=== PATIENT | female | born 1955 | race Caucasian/White ===

== ENCOUNTER → 2016-10-16 | Outpatient (CLI) | payer BC ==
[~2016-10-16] MED LIST: ALBUTEROL0.09 MG/A2 INH; COUGH PO; LEVOFLOXACIN500 MG PO; LEVOTHYROXINE0.05 MG PO; LISINOPRIL/HCTZ1 TA3 PO; PREDNICOT10 MG PO; ZITHROMAX Z PA250 MG PO; ZYRTEC-D 5 MG-11 TE1 PO
== END | disposition home or self-care (01) ==
LOC: RAD 12:04
DX: M47.897 Other spondylosis, lumbosacral region (principal); M47.896 Other spondylosis, lumbar region; M25.78 Osteophyte, vertebrae

== ENCOUNTER → 2016-11-25 | Outpatient (CLI) | payer BC ==
[2016-11-25 10:50] LABS: BASO # 0.1 10*3/uL (0.0-0.1); EOS # 0.2 10*3/uL (0.0-0.4); EOS % 2.2 % (1.0-4.0); HEMATOCRIT 37.6 % (37.0-47.0); HEMOGLOBIN 12.4 g/dl (12.0-16.0); LYMPH # 3.2 10*3/uL (1.3-4.4); LYMPH % 33.7 % (27.0-41.0); MEAN PLATELET VOLUME 12.6 fl (9.6-12.3); MONO # 0.7 10*3/uL (0.1-1.0); MONO % 7.1 % (3.0-9.0); NEUT # 5.2 10*3/uL (2.3-7.9); NEUT % 55.5 % (47.0-73.0); PLATELET COUNT AUTOMATED 227 10*3/uL (130-400); RED CELL DISTRI WIDTH 13.7 % (0-14.5); WHITE BLOOD COUNT 9.4 10*3/uL (4.8-10.8)
[2016-11-25 11:11] LABS: ALBUMIN 3.5 gm/dl (3.1-4.5); ALKALINE PHOSPHATASE 55 U/L (45-117); BUN 16 mg/dl (7-24); CHLORIDE 97 mmol/L (98-107); CHOLESTEROL 222 mg/dL (<200); CREATININE 0.82 mg/dL (0.55-1.02); HDL CHOLESTEROL 60 mg/dl (40-60); LDL CHOLESTEROL 130 mg/dL (9-159); POTASSIUM 3.4 mmol/L (3.5-5.1); SGOT/AST 18 IU/L (3-35); SGPT/ALT 32 U/L (12-78); SODIUM 138 mmol/L (136-145); TOTAL PROTEIN 7.1 gm/dL (6.4-8.2); TRIGLYCERIDES 160 mg/dl (<150); VLDL CHOLESTEROL 32 mg/dL (6-40)
== END | disposition home or self-care (01) ==
LOC: LAB 10:05
PROVIDERS: Internal Medicine
DX: I10 Essential (primary) hypertension (principal); E03.9 Hypothyroidism, unspecified; E78.2 Mixed hyperlipidemia; E55.9 Vitamin D deficiency, unspecified

== ENCOUNTER → 2017-04-23 | Outpatient (CLI) | payer BC ==
[2017-04-23 09:47] LABS: BASO # 0.1 10*3/uL (0.0-0.1); BASO % 0.8 % (0.0-1.0); EOS # 0.3 10*3/uL (0.0-0.4); EOS % 4.1 % (1.0-4.0); HEMATOCRIT 36.8 % (37.0-47.0); HEMOGLOBIN 12.3 g/dl (12.0-16.0); LYMPH # 1.4 10*3/uL (1.3-4.4); LYMPH % 19.6 % (27.0-41.0); MEAN CELL VOLUME 92.2 fl (81.0-99.0); MEAN CORPUSCULAR HGB 30.8 pg (27.0-31.0); MEAN CORPUSCULAR HGB CONC 33.4 g/dl (33.0-37.0); MEAN PLATELET VOLUME 12.9 fl (9.6-12.3); MONO # 0.4 10*3/uL (0.1-1.0); MONO % 5.6 % (3.0-9.0); NEUT # 5.1 10*3/uL (2.3-7.9); NEUT % 69.6 % (47.0-73.0); PLATELET COUNT AUTOMATED 228 10*3/uL (130-400); RED BLOOD COUNT 3.99 10*6/uL (4.10-5.10); WHITE BLOOD COUNT 7.3 10*3/uL (4.8-10.8)
[2017-04-23 10:08] LABS: ALBUMIN 3.4 gm/dl (3.1-4.5); ALKALINE PHOSPHATASE 65 U/L (45-117); BUN 12 mg/dl (7-24); CHLORIDE 101 mmol/L (98-107); CREATININE 0.74 mg/dL (0.55-1.02); POTASSIUM 3.5 mmol/L (3.5-5.1); SGOT/AST 16 IU/L (3-35); SGPT/ALT 21 U/L (12-78); SODIUM 139 mmol/L (136-145)
== END ==
LOC: LAB 09:07
PROVIDERS: Internal Medicine
DX: R73.09 Other abnormal glucose (principal); M35.3 Polymyalgia rheumatica; E03.9 Hypothyroidism, unspecified; E55.9 Vitamin D deficiency, unspecified; I10 Essential (primary) hypertension

== ENCOUNTER → 2017-07-27 | Outpatient (CLI) | payer BC ==
--- NOTE | ~2017-07-27 | PF ---
[place], [place] PULMONARY FUNCTION TEST NAME: ANGEL FALCON UNIT #: [id number] ROOM: DOCTOR: HARSH QUIGLEY,MARIO BIRTHDATE: [birth year] DOS: 07/28/2017 REQUESTED BY: Dr. Martínez. INDICATIONS: A 65 inches tall, 240 pounds, 62-year-old female complaining of COPD, dyspnea walking less than 100 yards. No wheezing, no coughing; [id number] history of smoking cigarettes, quit 2 years ago. Flow volume loop, mild restriction and possible obstruction. Spirometry, FEV1 post-bronchodilator therapy 1.9 liters, 74%. FVC 2.43, 75% predicted, which is 77% of the FEV1 and post-bronchodilator therapy FEV1 improved by 10%. FEF 25-75% improved by 47%. MVV not done. Lung volumes, slow vital capacity 72%, inspiratory capacity 98%, ERV 6%, total 19. Residual volume 124, total lung capacity 93% RV/TLC 53%. Diffusion capacity 85%, corrected to alveolar volume 94%. Alveolar volume 90% predicted and airway resistance 158% predicted. IMPRESSION: Study is suggestive of early obstructive lung disease, most likely asthma but no clearcut COPD and there is some residual volume increase suggestive of air trapping, which can also have been an early asthma. MARIO HOUSE MD CM:PFREPORT:PULMONARY FUNCTION TEST [id number] MARIO HOUSE MD
== END | disposition home or self-care (01) ==
LOC: CP 10:12
DX: J44.9 Chronic obstructive pulmonary disease, unspecified (principal)

== ENCOUNTER → 2017-12-09 | Outpatient (CLI) | payer BC | END | disposition home or self-care (01) | LOC: US 00:36 | DX: N95.0 Postmenopausal bleeding (principal) ==

== ENCOUNTER → 2017-12-28 | Outpatient (CLI) | payer BC | END | disposition home or self-care (01) | LOC: LAB 09:19 | DX: M35.3 Polymyalgia rheumatica (principal) ==

== ENCOUNTER → 2018-03-29 | Outpatient (CLI) | payer BC | END | disposition home or self-care (01) | LOC: LAB 15:38 | DX: M35.3 Polymyalgia rheumatica (principal) ==

== ENCOUNTER → 2018-06-21 | Outpatient (CLI) | payer BC | END | disposition home or self-care (01) | LOC: LAB 12:02 | DX: M35.3 Polymyalgia rheumatica (principal) ==

== ENCOUNTER → 2018-09-09 | Outpatient (CLI) | payer BC ==
[2018-09-09 10:43] LABS: BASO # 0.1 10*3/uL (0.0-0.1); BASO % 1.3 % (0.0-1.0); EOS # 0.2 10*3/uL (0.0-0.4); EOS % 2.1 % (1.0-4.0); HEMATOCRIT 37.6 % (37.0-47.0); HEMOGLOBIN 11.9 g/dl (12.0-16.0); LYMPH # 3.2 10*3/uL (1.3-4.4); LYMPH % 37.1 % (27.0-41.0); MEAN CELL VOLUME 95.7 fl (81.0-99.0); MEAN CORPUSCULAR HGB 30.3 pg (27.0-31.0); MEAN CORPUSCULAR HGB CONC 31.6 g/dl (33.0-37.0); MEAN PLATELET VOLUME 12.7 fl (9.6-12.3); MONO # 0.5 10*3/uL (0.1-1.0); MONO % 6.4 % (3.0-9.0); NEUT # 4.5 10*3/uL (2.3-7.9); NEUT % 52.6 % (47.0-73.0); PLATELET COUNT AUTOMATED 230 10*3/uL (130-400); RED BLOOD COUNT 3.93 10*6/uL (4.10-5.10); RED CELL DISTRI WIDTH 13.6 % (0-14.5); WHITE BLOOD COUNT 8.5 10*3/uL (4.8-10.8)
[2018-09-09 11:10] LABS: ALBUMIN 3.7 gm/dl (3.1-4.5); ALKALINE PHOSPHATASE 53 U/L (45-117); BUN 16 mg/dl (7-24); CHLORIDE 99 mmol/L (98-107); CREATININE 0.75 mg/dL (0.55-1.02); POTASSIUM 3.3 mmol/L (3.5-5.1); SGOT/AST 13 IU/L (3-35); SGPT/ALT 21 U/L (12-78); SODIUM 140 mmol/L (136-145); TOTAL PROTEIN 6.8 gm/dL (6.4-8.2)
== END | disposition home or self-care (01) ==
LOC: LAB 10:07
PROVIDERS: Student in an Organized Health Care Education/Training Program
DX: E11.9 Type 2 diabetes mellitus without complications (principal)

== ENCOUNTER → 2018-09-26 | Outpatient (CLI) | payer BC | END | disposition home or self-care (01) | LOC: LAB 13:30 | DX: M35.3 Polymyalgia rheumatica (principal) ==

== ENCOUNTER → 2019-01-09 | Outpatient (CLI) | payer BC | END | disposition home or self-care (01) | LOC: LAB 13:58 | DX: M35.3 Polymyalgia rheumatica (principal) ==

== ENCOUNTER → 2019-03-28 | Outpatient (CLI) | payer BC ==
[2019-03-28 11:27] LABS: BASO # 0.1 10*3/uL (0.0-0.1); BASO % 1.3 % (0.0-1.0); EOS # 0.2 10*3/uL (0.0-0.4); HEMATOCRIT 39.8 % (37.0-47.0); HEMOGLOBIN 12.7 g/dl (12.0-16.0); LYMPH # 2.3 10*3/uL (1.3-4.4); MEAN CELL VOLUME 93.9 fl (81.0-99.0); MEAN CORPUSCULAR HGB CONC 31.9 g/dl (33.0-37.0); MEAN PLATELET VOLUME 12.9 fl (9.6-12.3); MONO # 0.5 10*3/uL (0.1-1.0); MONO % 6.7 % (3.0-9.0); NEUT # 4.5 10*3/uL (2.3-7.9); NEUT % 59.6 % (47.0-73.0); PLATELET COUNT AUTOMATED 214 10*3/uL (130-400); RED BLOOD COUNT 4.24 10*6/uL (4.10-5.10); RED CELL DISTRI WIDTH 14.4 % (0-14.5); WHITE BLOOD COUNT 7.6 10*3/uL (4.8-10.8)
[2019-03-28 11:51] LABS: BILIRUBIN NEGATIVE (NEGATIVE); BLOOD NEGATIVE (NEGATIVE); CLARITY SL CLOUDY (CLEAR); COLOR YELLOW (YELLOW); GLUCOSE NEGATIVE (NEGATIVE); KETONE NEGATIVE (NEGATIVE); LEUKO ESTERASE NEGATIVE (NEGATIVE); NITRITE NEGATIVE (NEGATIVE); SPECIFIC GRAVITY >= 1.030 (1.005-1.030); UROBILINOGEN 0.2 E.U./dl (0.2-1.0)
[2019-03-28 11:56] LABS: BUN 13 mg/dl (7-24); CHLORIDE 103 mmol/L (98-107); CHOLESTEROL 150 mg/dL (<200); CREATININE 0.92 mg/dL (0.55-1.02); HDL CHOLESTEROL 66 mg/dl (40-60); IRON 65 ug/dL (50-170); LDL CHOLESTEROL 66 mg/dL (9-159); POTASSIUM 3.9 mmol/L (3.5-5.1); SODIUM 141 mmol/L (136-145); TRIGLYCERIDES 89 mg/dl (<150); VLDL CHOLESTEROL 18 mg/dL (6-40)
[2019-03-28 12:19] LABS: BACTERIA 2+; MUCOUS 2+
[2019-03-28 13:13] LABS: FERRITIN 20.5 ng/mL (10.0-291.0)
== END | disposition home or self-care (01) ==
LOC: LAB 10:57
PROVIDERS: Student in an Organized Health Care Education/Training Program
DX: I10 Essential (primary) hypertension (principal); E78.2 Mixed hyperlipidemia; E03.9 Hypothyroidism, unspecified; D64.9 Anemia, unspecified

== ENCOUNTER → 2019-05-01 | Outpatient (CLI) | payer BC | END | disposition home or self-care (01) | LOC: LAB 14:16 | DX: M35.3 Polymyalgia rheumatica (principal) ==